=== PATIENT | male | born 1965 | race African-American/Black ===

== ENCOUNTER 2024-01-26 10:13 | Outpatient (AMB) | payer OTHER, SELFPAY ==
--- NOTE | 2024-01-26 10:18 | MHC.OFFVIS ---
Intake Visit Reasons: BPH/PSA Intake Note: Patient is present for BPH/PSA Urology Medication:NONE Antibiotic Allergy:NONE Blood Thinner:NONE Vest Busheler Required: No Allergies No Known Allergies Allergy (Verified 01/26/24 10:19) HPI Comments Details: Allen is a 58-year-old male here for evaluation due to elevated PSA. He denies urinary issues. AUA symptom score 4. He is unaware of family history of prostate cancer. I have discussed re-evaluating PSA testing. Prostate exam-smooth, no suspicious nodules palpated. Urinalysis is within normal limits. [facility] Medical History Male circumcision HTN (hypertension) Mild intermittent asthma, uncomplicated Right bundle branch block (RBBB) determined by electrocardiography Prediabetes Hyperlipidemia Surgical History History of tonsillectomy History of ear surgery H/O colonoscopy History of bunionectomy Family History Mother Hypertension Paternal Grandmother Cancer of breast Daughter Uterine cancer Social History Alcohol intake: current Patient Tobacco Use Status: Former Tobacco user Tobacco use type: Cigarette Cigarette Packs Per Day: 0.50 Years Smoked: 15.00 Packs Per Year: 750 Smoked in Last 30 Days: No Non Cigarette Tobacco use how lon.8 Non Cigarette Tobacco use Quit date or years: 06/30/2003 Review of Systems Const All systems reviewed & are unremarkable except as noted in HPI and below Reports no additional complaints Eyes Reports no additional complaints ENT Reports no additional complaints Card Reports no additional complaints Resp Reports no additional complaints GI Reports no additional complaints Reports as per HPI Musc Reports no additional complaints Skin/Breast Reports system reviewed and no additional complaints, except as documented Neuro Reports no additional complaints Psych Reports no additional complaints Endo Reports no additional complaints Boyd/Lymph Reports no additional complaints Aller/Immun Reports no additional complaints Physical Exam Const General: healthy appearing, no acute distress and well developed Orientation/consciousness: patient oriented x3 HEENT Head: Yes normocephalic and Yes atraumatic Eyes Conjunctivae: conjunctivae normal Neck Neck: Yes normal visual inspection Chest Chest palpation & inspection: normal inspection of the chest Resp Effort & Inspection: normal respiratory effort Cardio Rate: regular rate GI Inspection: Yes normal to inspection Other: Prostate Exam: Smooth nontender no hard nodules palpated Skin General skin exam: no rashes or lesions noted Neuro General: patient oriented x3 Extrem General: No pedal edema Psych Appearance: grossly normal Affect: normal affect Results AMB Urinalysis, Automated UA Leukoctes 0 Odilia/uL Last Edit by JAIRON Avina on 01/26/24 10:37 UA Nitrite Negative Last Edit by JAIRON Avina on 01/26/24 10:37 UA Urobilinogen 0.2 mg/dL Last Edit by JAIRON Avina on 01/26/24 10:37 UA Protein 15 mg/dL Last Edit by JAIRON Avina on 01/26/24 10:37 UA pH 6.0 Last Edit by JAIRON Avina on 01/26/24 10:37 UA Blood 10 [place]/uL Last Edit by JAIRON Avina on 01/26/24 10:37 UA Specific [place] 1.015 Last Edit by JAIRON Avina on 01/26/24 10:37 UA Ketone Negative Last Edit by JAIRON Avina on 01/26/24 10:37 UA Bilirubin 0 mg/dL Last Edit by JAIRON Avina on 01/26/24 10:37 UA Glucose 0 mg/dL Last Edit by JAIRON Avina on 01/26/24 10:37 Quality Reporting (2019) Benign Prostatic Hyperplasia ([facility] 771) AUA symptom score: 4 Quality of life due to urinary symptoms: If you were to spend the rest of your life with your urinary condition the way it is now, how would you feel about that?: Pleased Results Reviewed Results Reviewed: Laboratory Last Values Urine pH (Auto) 6.0 01/26/24 10:36 Specific [place] (Auto) 1.015 01/26/24 10:36 Urine Protein (Auto) 15 mg/dL 01/26/24 10:36 Glucose (UA)(Auto) 0 mg/dL 01/26/24 10:36 Urine Ketones (Auto) Negative 01/26/24 10:36 Urine Blood (Auto) 10 [place]/uL 01/26/24 10:36 Urine Nitrite (Auto) Negative 01/26/24 10:36 Urine Bilirubin (Auto) 0 mg/dL 01/26/24 10:36 Urine Urobilinogen (Auto) 0.2 mg/dL 01/26/24 10:36 Leukocyte Esterase (Auto) 0 [place]/uL 01/26/24 10:36 Assessment & Plan Assessment & Plan (1) Elevated PSA: Code(s): R97.20 - Elevated prostate specific antigen [PSA] Category: Medical (2) BPH (benign prostatic hyperplasia): Code(s): N40.0 - Benign prostatic hyperplasia without lower urinary tract symptoms Category: Medical Plan PSA testing. Orders: Orders AMB Urinalysis Automated Today Z13.9 - Encounter for screening, unspecified PSA,Total (Free>4and<10) Today R97.20 - Elevated prostate specific antigen [PSA] Patient Instructions: The patient had an opportunity to ask questions regarding treatment plan. The patient expressed understanding and agreement with the above treatment plan. The patient is aware they should contact our office by phone for worsening of their current condition or the appearance of new symptoms. Compliance is encouraged with any medications and followup testing that is ordered. It is a privilege to be allowed the opportunity to participate in the urologic care of your patient. If you have any questions or concerns regarding treatment for the above conditions please do not hesitate to contact me. The office telephone contact is [phone]. This note is constructed in part using voice recognition software. While every effort has been made to ensure accuracy squirt machine operator errors may have been included. Yours sincerely, Chavo Kemp MD Coding Level of Care Code New Pt Level 4 (64443) Diagnoses Elevated PSA R97.20 BPH (benign prostatic hyperplasia) N40.0 AUA Symptom Score AUA Incomplete emptying - It does not feel like I empty my bladder all the way.: 2 - Less than half the time Frequency - I have to go again less than two hours after I finish urinating.: 0 - Not at all Intermittency - I stop and start again several times when I urinate.: 1 - Less than 1 time in 5 Urgency - It is hard to wait when I have to urinate.: 0 - Not at all Weak stream - I have a weak urinary stream.: 0 - Not at all Straining - I have to push or strain to begin urination.: 0 - Not at all Nocturia - I get up to urinate after I go to bed until the time I get up in the morning.: 1 time AUA Symptom Score: 4 Quality of life due to urinary symptoms: If you were to spend the rest of your life with your urinary condition the way it is now, how would you feel about that?: Pleased Source: Tommy STANLEY, Krishna GALDAMEZ Jr, O'[place] MP, et al, and the Measurement Committee of the [employer]. The [employer] symptom index for benign prostatic hyperplasia. J Urol. 1992; 148: 7462-9270. Copyright 1992 [employer]
== END 2024-01-26 11:44 | disposition home or self-care (01) ==
PROVIDERS: PCP Family Medicine; Visit Provider Urology
DX: R97.20 Elevated prostate specific antigen [PSA] (principal); N40.0 Benign prostatic hyperplasia without lower urinary tract symptoms; Z13.9 Encounter for screening, unspecified
CPT/HCPCS: 99204

== ENCOUNTER → 2024-01-26 10:13 | Outpatient (BNVA) | payer OTHER, SELFPAY | PROVIDERS: PCP Family Medicine; Visit Provider Urology | DX: R97.20 Elevated prostate specific antigen [PSA] (principal); N40.0 Benign prostatic hyperplasia without lower urinary tract symptoms | CPT/HCPCS: 81003 ==

== ENCOUNTER 2024-01-30 10:15 | Outpatient (REF) | payer OTHER, SELFPAY ==
[2024-01-30 13:52] LABS: PSA,Total (Free>4and<10) 2.05 ng/mL (0.00-4.00)
== END 2024-01-30 10:16 | disposition home or self-care (01) ==
LOC: HO.HMGCLDS 10:15
PROVIDERS: Visit Provider Urology
DX: Z12.5 Encounter for screening for malignant neoplasm of prostate (principal); R97.20 Elevated prostate specific antigen [PSA]
CPT/HCPCS: 36415; 84153

== ENCOUNTER → 2024-02-25 08:32 | Outpatient (BNVA) | payer OTHER, SELFPAY | PROVIDERS: PCP Family Medicine; Visit Provider Urology ==

== ENCOUNTER 2024-02-27 15:07 | Outpatient (AMB) | payer OTHER, SELFPAY ==
--- NOTE | 2024-02-27 15:05 | MHC.OFFVIS ---
Intake Visit Reasons: 3w/PSA(2.05) Intake Note: Patient is present for 3w/PSA Urology Medication:NONE Antibiotic Allergy:NONE Blood Thinner:NONE Resident Care Aid Required: No Allergies No Known Allergies Allergy (Verified 02/27/24 15:05) HPI Comments Details: 02/27/24--Allen presents for telehealth video to review PSA results. 01/30/2024--PSA--2.05 ng/mL. I have also reviewed previous PSA labs including: PSA 08/16/2022--1.4 ng/mL; 05/05/2023--2.4 ng/mL PSA is stable. The patient had questions regarding PSA value. I have discussed that elevated PSA may indicate changes in the prostate including benign enlargement, cancer and an inflammatory condition. Plan continue PSA screening follow-up in 9 months. Review of chart: 01/26/24--Allen is a 58-year-old male here for evaluation due to elevated PSA. He denies urinary issues. AUA symptom score 4. He is unaware of family history of prostate cancer. I have discussed re-evaluating PSA testing. Prostate exam-smooth, no suspicious nodules palpated. Urinalysis is within normal limits. [facility] Medical History Male circumcision HTN (hypertension) Mild intermittent asthma, uncomplicated Right bundle branch block (RBBB) determined by electrocardiography Prediabetes Hyperlipidemia Surgical History History of tonsillectomy History of ear surgery H/O colonoscopy History of bunionectomy Family History Mother Hypertension Paternal Grandmother Cancer of breast Daughter Uterine cancer Social History Alcohol intake: current Patient Tobacco Use Status: Former Tobacco user Tobacco use type: Cigarette Cigarette Packs Per Day: 0.50 Years Smoked: 15.00 Review of Systems Const All systems reviewed & are unremarkable except as noted in HPI and below Reports no additional complaints Eyes Reports no additional complaints ENT Reports no additional complaints Card Reports no additional complaints Resp Reports no additional complaints GI Reports no additional complaints Reports as per HPI Musc Reports no additional complaints Skin/Breast Reports system reviewed and no additional complaints, except as documented Neuro Reports no additional complaints Psych Reports no additional complaints Endo Reports no additional complaints Boyd/Lymph Reports no additional complaints Aller/Immun Reports no additional complaints Telehealth Telehealth Telehealth Platform: [facility] Location of provider rendering services: practice address Location of patient: address on file Patient Identification confirmed using: Name, : Yes Telehealth method: video Patient verbally consented to treatment: Yes Patient verbally consented to billing insurance company: Yes Patient informed of any privacy concerns related to visit: Yes Results Reviewed Results Reviewed: PSA values as noted in the HPI. Assessment & Plan Assessment & Plan (1) BPH (benign prostatic hyperplasia): Code(s): N40.0 - Benign prostatic hyperplasia without lower urinary tract symptoms Category: Medical (2) Screening PSA (prostate specific antigen): Code(s): Z12.5 - Encounter for screening for malignant neoplasm of prostate Category: Medical Plan Plan continue PSA screening follow-up in 9 months. Patient Instructions: The patient had an opportunity to ask questions regarding treatment plan. The patient expressed understanding and agreement with the above treatment plan. The patient is aware they should contact our office by phone for worsening of their current condition or the appearance of new symptoms. Compliance is encouraged with any medications and followup testing that is ordered. It is a privilege to be allowed the opportunity to participate in the urologic care of your patient. If you have any questions or concerns regarding treatment for the above conditions please do not hesitate to contact me. The office telephone contact is [phone]. This note is constructed in part using voice recognition software. While every effort has been made to ensure accuracy security program manager errors may have been included. Yours sincerely, Chavo Kemp MD Coding Level of Care Code Tele Est Pt Level 3 (41248) Diagnoses BPH (benign prostatic hyperplasia) N40.0 Screening PSA (prostate specific antigen) Z12.5
== END 2024-02-27 16:13 | disposition home or self-care (01) ==
LOC: HO.HUSH 15:07
PROVIDERS: PCP Family Medicine; Visit Provider Urology
DX: N40.0 Benign prostatic hyperplasia without lower urinary tract symptoms (principal)
CPT/HCPCS: 99213

== ENCOUNTER → 2024-02-27 15:07 | Outpatient (BNVA) | payer OTHER, SELFPAY | PROVIDERS: PCP Family Medicine; Visit Provider Urology ==

== ENCOUNTER 2024-12-14 11:42 | Outpatient (REF) | payer OTHER, SELFPAY ==
[2024-12-14 13:44] LABS: Prostate Specific Antigen 3.09 ng/mL (<0.05-4.0)
== END 2024-12-14 11:43 | disposition home or self-care (01) ==
LOC: HO.10HDL 11:42
PROVIDERS: Visit Provider Urology
DX: Z12.5 Encounter for screening for malignant neoplasm of prostate (principal); N40.0 Benign prostatic hyperplasia without lower urinary tract symptoms; R97.20 Elevated prostate specific antigen [PSA]
CPT/HCPCS: 36415; 84153

== ENCOUNTER 2024-12-24 11:17 | Outpatient (AMB) | payer OTHER, SELFPAY ==
--- NOTE | 2024-12-24 11:45 | A.OFFVIS_ITS ---
Intake Visit Reasons: 10m/PSA Intake Note: Patient is present for 10m/PSA * 12/14 PSA:3.09 Urology Medication:NONE Antibiotic Allergy:NONE Blood Thinner:NONE PVR:11ml Medical Translator Required: No Allergies No Known Allergies Allergy (Verified 12/24/24 11:45) Medication List - Last Reconciled 12/24/24 by Chavo Kemp MD amlodipine 10 mg PO DAILY diclofenac sodium-menthol 1.5-10 % pkgs topical HPI Comments Details: 12/24/24-Allen is a 58-year-old male followed due to elevated PSA denies obstructive urinary symptoms. Repeat PSA is 3.09 on 12/14/24, we will continue to monitor. Urinalysis today is negative for blood or leukocytes. Bladder scan PVR 11 mL. 02/27/24--Allen presents for telehealth video to review PSA results. 01/30/2024--PSA--2.05 ng/mL. I have also reviewed previous PSA labs including: PSA 08/16/2022--1.4 ng/mL; 05/05/2023--2.4 ng/mL PSA is stable. The patient had questions regarding PSA value. I have discussed that elevated PSA may indicate changes in the prostate including benign enlargement, cancer and an inflammatory condition. Plan continue PSA screening follow-up in 9 months. 01/26/24--Allen is a 58-year-old male here for evaluation due to elevated PSA. He denies urinary issues. AUA symptom score 4. He is unaware of family history of prostate cancer. I have discussed re- evaluating PSA testing. Prostate exam-smooth, no suspicious nodules palpated. Urinalysis is within normal limits. [facility] Medical History Male circumcision HTN (hypertension) Mild intermittent asthma, uncomplicated Right bundle branch block (RBBB) determined by electrocardiography Prediabetes Hyperlipidemia Surgical History History of tonsillectomy History of ear surgery H/O colonoscopy History of bunionectomy Family History Mother Hypertension Paternal Grandmother Cancer of breast Daughter Uterine cancer Social History Alcohol intake: current Patient Tobacco Use Status: Former Tobacco user Tobacco use type: Cigarette Cigarette Packs Per Day: 0.50 Years Smoked: 15.00 Review of Systems Const All systems reviewed & are unremarkable except as noted in HPI and below Reports no additional complaints Eyes Reports no additional complaints ENT Reports no additional complaints Card Reports no additional complaints Resp Reports no additional complaints GI Reports no additional complaints Reports as per HPI Musc Reports no additional complaints Skin/Breast Reports system reviewed and no additional complaints, except as documented Neuro Reports no additional complaints Psych Reports no additional complaints Endo Reports no additional complaints Boyd/Lymph Reports no additional complaints Aller/Immun Reports no additional complaints Office Procedures Post Void Residual Post Residual Void Post Void Residual (PVR): 11 [id number] Void Residual by ultrasound Results AMB Urinalysis, Automated UA Leukoctes 0 Odilia/uL Last Edit by Alem Vanessa on 12/24/24 16:33 UA Nitrite Negative Last Edit by Alem Vanessa on 12/24/24 16:33 UA Urobilinogen 3.5 mg/dL Last Edit by Crystal Vanessa on 12/24/24 16:33 UA Protein 1 mg/dL Last Edit by Crystal Vanessa on 12/24/24 16:33 UA pH 7.5 Last Edit by Crystal Vanessa on 12/24/24 16:33 UA Blood 0 [place]/uL Last Edit by Crystal Vanessa on 12/24/24 16:33 UA Specific [place] 1.010 Last Edit by Alem Vanessa on 12/24/24 16:33 UA Ketone Negative Last Edit by Crystal Vanessa on 12/24/24 16:33 UA Bilirubin 0 mg/dL Last Edit by Crystal Vanessa on 12/24/24 16:33 UA Glucose 0 mg/dL Last Edit by Crystal Vanessa on 12/24/24 16:33 Results Reviewed Results Reviewed: Laboratory Last Values Urine pH (Auto) 7.5 12/24/24 13:57 Specific [place] (Auto) 1.010 12/24/24 13:57 Urine Protein (Auto) 1 mg/dL 12/24/24 13:57 Glucose (UA)(Auto) 0 mg/dL 12/24/24 13:57 Urine Ketones (Auto) Negative 12/24/24 13:57 Urine Blood (Auto) 0 [place]/uL 12/24/24 13:57 Urine Nitrite (Auto) Negative 12/24/24 13:57 Urine Bilirubin (Auto) 0 mg/dL 12/24/24 13:57 Urine Urobilinogen (Auto) 3.5 mg/dL 12/24/24 13:57 Leukocyte Esterase (Auto) 0 [place]/uL 12/24/24 13:57 Assessment & Plan Assessment & Plan (1) BPH (benign prostatic hyperplasia): Code(s): N40.0 - Benign prostatic hyperplasia without lower urinary tract symptoms Category: Medical (2) Screening PSA (prostate specific antigen): Code(s): Z12.5 - Encounter for screening for malignant neoplasm of prostate Category: Medical Plan Continue to monitor PSA Orders: Orders AMB Urinalysis Automated 12/24/24 Z13.9 - Encounter for screening, unspecified AMB Post Void Residual by ultrasound 12/24/24 N40.0 - Benign prostatic hyperplasia without lower urinary tract symptoms Patient Instructions: The patient had an opportunity to ask questions regarding treatment plan. The patient expressed understanding and agreement with the above treatment plan. The patient is aware they should contact our office by phone for worsening of their current condition or the appearance of new symptoms. Compliance is encouraged with any medications and followup testing that is ordered. It is a privilege to be allowed the opportunity to participate in the urologic care of your patient. If you have any questions or concerns regarding treatment for the above conditions please do not hesitate to contact me. The office telephone contact is [phone]. This note is constructed in part using voice recognition software. While every effort has been made to ensure accuracy proposal manager writer errors may have been included. Yours sincerely, Chavo Kemp MD Coding Level of Care Code Est Pt Level 3 (55966) Diagnoses BPH (benign prostatic hyperplasia) N40.0 Screening PSA (prostate specific antigen) Z12.5 CPT Codes Post Residual Void - PVR CPT Code: 49332-Cdzn Void Residual by ultrasound ([id number])
== END 2024-12-24 12:22 | disposition home or self-care (01) ==
LOC: HO.HUSH 11:17
PROVIDERS: PCP Family Medicine; Visit Provider Urology
DX: Z13.9 Encounter for screening, unspecified (principal)
CPT/HCPCS: 99213

== ENCOUNTER → 2024-12-24 11:17 | Outpatient (BNVA) | payer OTHER, SELFPAY | PROVIDERS: PCP Family Medicine; Visit Provider Urology | DX: N40.0 Benign prostatic hyperplasia without lower urinary tract symptoms (principal) | CPT/HCPCS: 51798; 81003 ==